=== PATIENT | female | born 1965 | race Caucasian/White ===

== ENCOUNTER → 2018-04-12 | Outpatient (REF) | payer OTHER ==
[~2018-04-12] MED LIST: IBUP200C25 PO; IMIT50TA PO; MULT1TAB18 PO; OMEP40CA2 PO; POTASSIUM PO; VALT500T PO
== END ==
LOC: M LABNEURO 13:15
PROVIDERS: ATTEND Physician Assistant Medical
DX: R51 Headache (principal)

== ENCOUNTER → 2019-10-13 | Outpatient (CLI) | payer OTHER ==
[~2019-10-13] MED LIST changes: +NARA2.5T PO; -OMEP40CA2 PO; +OMEP40CA97 PO; +[UNRECOGNIZED DRUG - OTHER] VG
== END ==
LOC: M LABSMTC 09:44
PROVIDERS: ATTEND Anesthesiology
DX: Z01.818 Encounter for other preprocedural examination (principal); Z11.59 Encounter for screening for other viral diseases
CPT/HCPCS: C9803; U0003

== ENCOUNTER → 2019-10-18 | Day surgery (SDC) | payer OTHER ==
[~2019-10-18] VITALS: Ht 154.9 cm; Wt 49.0 kg
[~2019-10-18] MED LIST changes: +LIDOCAINE 2% 100MG/5ML SDV (FOR ANES.) As Ordered ONE; +NS 1,000 ML IV ONE; +propofoL 200 MG/20 ML VIAL As Ordered ONE
--- NOTE | 2019-10-18 08:42 | ROOR ---
Patient Name: Ruby Villalba Procedure Date: 10/18/2019 8:13 AM Date of : 1965 Age: 54 Room: [facility] Gender: Female Note Status: Finalized Procedure: Colonoscopy Indications: Rectal bleeding Providers: Mannie Coelho Jr, MD Referring MD: 1. No Referring Physician 1. No Referring Physician, Admin., Mannie Coelho Jr, MD Requesting Provider: Medicines: Propofol per Anesthesia Complications: No immediate complications. Procedure: Pre-Anesthesia Assessment: - Prior to the procedure, a History and Physical was performed, and patient medications and allergies were reviewed. The patient is competent. The risks and benefits of the procedure and the sedation options and risks were discussed with the patient. All questions were answered and informed consent was obtained. Patient identification and proposed procedure were verified by the physician and the nurse in the pre-procedure area and in the procedure room. Mental Status Examination: alert and oriented. Airway Examination: normal oropharyngeal airway and neck mobility. Respiratory Examination: clear to auscultation. CV Examination: normal. ASA Grade Assessment: II - A patient with mild systemic disease. After reviewing the risks and benefits, the patient was deemed in satisfactory condition to undergo the procedure. The anesthesia plan was to use moderate sedation / analgesia (conscious sedation). Immediately prior to administration of medications, the patient was re-assessed for adequacy to receive sedatives. The heart rate, respiratory rate, oxygen saturations, blood pressure, adequacy of pulmonary ventilation, and response to care were monitored throughout the procedure. The physical status of the patient was re-assessed after the procedure. The Colonoscope was introduced through the anus and advanced to the cecum, identified by appendiceal orifice and ileocecal valve. The patient tolerated the procedure well. The quality of the bowel preparation was adequate. Findings: The rectum, sigmoid colon, descending colon, transverse colon, cecum, appendiceal orifice and ileocecal valve appeared normal. A diminutive polyp was found in the ascending colon. The polyp was removed with a cold snare. Resection and retrieval were complete. Non-bleeding hemorrhoids were found during retroflexion and during perianal exam. The hemorrhoids were severe and Grade III (internal hemorrhoids that prolapse but require manual reduction). Impression: - The rectum, sigmoid colon, descending colon, transverse colon, cecum, appendiceal orifice and ileocecal valve are normal. - One diminutive polyp in the ascending colon, removed with a cold snare. Resected and retrieved. - Non-bleeding hemorrhoids. Recommendation: - Repeat colonoscopy in 5-10 years for surveillance based on pathology results. Mannie Coelho MD Mannie Coelho Jr, MD 10/18/2019 8:41:46 AM Electronically signed by Mannie Coelho Jr, MD Number of Addenda: 0 Note Initiated On: 10/18/2019 8:13 AM Estimated Blood Loss: Estimated blood loss: none.
[2019-10-18 09:05] VITALS: BP 121/71
== END | disposition home or self-care (01) ==
LOC: M OPP 07:14
PROVIDERS: ATTEND Surgery
DX: K92.1 Melena (principal); D12.6 Benign neoplasm of colon, unspecified; K21.9 Gastro-esophageal reflux disease without esophagitis; E78.5 Hyperlipidemia, unspecified; Z88.0 Allergy status to penicillin; Z88.2 Allergy status to sulfonamides; Z88.8 Allergy status to other drugs, medicaments and biological substances; Z88.5 Allergy status to narcotic agent; Z88.1 Allergy status to other antibiotic agents; Z79.899 Other long term (current) drug therapy

== ENCOUNTER → 2020-06-09 | Outpatient (CLI) | payer OTHER ==
[~2020-06-09] MED LIST changes: -LIDOCAINE 2% 100MG/5ML SDV (FOR ANES.) As Ordered ONE; -NS 1,000 ML IV ONE; -propofoL 200 MG/20 ML VIAL As Ordered ONE
--- NOTE | 2020-06-09 15:00 | REP ---
INDICATION: NEUROMA VS CYST RIGHT FOOT. COMPARISON: None. TECHNIQUE: Markers are affixed to the skin at the site of the palpable lump on the dorsal aspect of the forefoot laterally . Axial, coronal and sagittal imaging planes utilized. T1 and T2 weighted sequences are included with without fat saturation. FINDINGS: Cortical and medullary bone signal intensity are normal. There is no evidence of ganglion cyst or definable soft tissue mass. In the dorsal lateral aspect of the forefoot there is ill-defined area of T2 edema. This is just beneath the dermis. There is a small quantity of fluid in the 1st MTP joint. No other joint effusion is evident. Ankle and subtalar and intertarsal articulations are unremarkable. Plantar fascia is smooth. No ligament or tendon disruption is appreciated. IMPRESSION: No evidence of ganglion cyst. There is an ill-defined area of very superficial edema in the dorsal subcutaneous soft tissues the lateral forefoot. No definable mass lesion. <Electronically signed by Jose Barker > 06/09/20 [id number]
== END ==
LOC: M RAD 12:56
PROVIDERS: ATTEND Podiatrist Foot & Ankle Surgery
DX: R60.0 Localized edema (principal)

== ENCOUNTER → 2022-02-15 | Outpatient (REF) ==
[~2022-02-15] MED LIST changes: +OMEP40CA4 PO; -OMEP40CA97 PO
== END ==
LOC: M LAB 13:52
PROVIDERS: ATTEND Nurse Practitioner Adult Health
DX: Z00.00 Encounter for general adult medical examination without abnormal findings (principal)

== ENCOUNTER → 2022-10-04 | Outpatient (CLI) | payer OTHER ==
[~2022-10-04] MED LIST changes: +PROHANCE 279.3MG/ML 5ML VIAL ONE
== END ==
LOC: M PLAIMG 09:32
PROVIDERS: ATTEND Physician Assistant Medical
DX: R16.0 Hepatomegaly, not elsewhere classified (principal)

== ENCOUNTER → 2024-07-19 | Day surgery (SDC) | payer OTHER ==
[~2024-07-19] VITALS: Ht 154.9 cm; Wt 48.0 kg
[~2024-07-19] MED LIST changes: +ESTR0.1C5; +EZET10TA21 PO; +MULTTAB61 PO; -PROHANCE 279.3MG/ML 5ML VIAL ONE
[2024-07-19 12:22] VITALS: TEMP 98.4
[2024-07-19 12:40] VITALS: O2SAT 100
[2024-07-19 12:50] VITALS: BP 123/60
== END | disposition home or self-care (01) ==
LOC: M OPP 10:23
PROVIDERS: ATTEND Surgery
DX: D12.6 Benign neoplasm of colon, unspecified (principal); Z86.0100 Personal history of colon polyps, unspecified; Z88.0 Allergy status to penicillin; Z88.1 Allergy status to other antibiotic agents; Z88.2 Allergy status to sulfonamides; Z88.5 Allergy status to narcotic agent; Z88.6 Allergy status to analgesic agent; Z88.8 Allergy status to other drugs, medicaments and biological substances; Z91.02 Food additives allergy status; Z79.899 Other long term (current) drug therapy